=== PATIENT | female | born 1975 | race Caucasian/White ===

== ENCOUNTER 2020-06-20 11:04 | Outpatient (CLI) | payer OTHER ==
--- NOTE | 2020-06-10 09:30 | NUR ---
LMOM FOR THE COVID TEST PRIOR TO SIG[facility] ON 06/20. SHE WAS INSTRUCTED TO CALL BACK . SHE WAS GIVEN SWAB DATE 06/14 BETWEEN - AND THE NUMBER TO CALL. LABELS TAKEN TO LAB.
[2020-06-20 11:38] LABS: HEMATOCRIT 39.8 % (37.0-47.0); HEMOGLOBIN 13.5 g/dl (12.5-16.0); MEAN CELL VOLUME 89 fl (80.0-100.0); MEAN CORPUSCULAR HEMOGLOBIN 30 pg (27.0-31.0); MEAN CORPUSCULAR HGB CONC 34 g/dl (33.0-37.0); MEAN PLATELET VOLUME 8.6 fl (7.4-10.4); PLATELET COUNT 300 K/mm3 (130-400); RED BLOOD COUNT 4.46 M/mm3 (4.10-5.30)
[2020-06-20] MEDS ORDERED: PRENATAL TABLET PO (11:45)
[2020-06-20] MEDS ORDERED: MILLIPRED5 MG PO (11:46)
[2020-06-20 11:48] VITALS: BP 156/87; PULSE 91; TEMP 98.3
[2020-06-20 11:49] LABS: CALCIUM 9.1 mg/dL (8.4-10.2); CREATININE, serum 0.68 (0.52-1.25)
[2020-06-20 12:10] VITALS: BP 123/72; PULSE 72; TEMP 98.2
[2020-06-20 12:25] VITALS: BP 128/75; PULSE 72; TEMP 98.2
[2020-06-20 12:40] VITALS: BP 124/79; PULSE 65; TEMP 98.2
[2020-06-20 12:55] VITALS: BP 130/77; PULSE 65; TEMP 98.2
[2020-06-20 13:25] VITALS: BP 119/78; PULSE 65
== END 2020-06-20 14:00 | disposition home or self-care (01) ==
LOC: COL.RAD 11:04
PROVIDERS: Internal Medicine Cardiovascular Disease
DX: I08.1 Rheumatic disorders of both mitral and tricuspid valves (principal); Z20.828 Contact with and (suspected) exposure to other viral communicable diseases